=== PATIENT | male | born 1950 | race Caucasian/White ===

== ENCOUNTER 2018-05-10 16:21 | Emergency (ER) | payer OTHER ==
[2015-02-06 16:00] VITALS: Wt 72.6 kg
[~2018-05-10 16:21] MED LIST: ALBU8.5H IH; ASPI-715 PO; ASPI1TAB66 PO; ASPIRIN PO; BLOOD PRESSURE MED; DOC100 PO; HYDR-2966 PO; HYDR12.556 PO; LISI-374 PO; METXL50 PO; MULT-820 PO; OMEP-125 PO; PER PO; POTASSIUM GLUCONATE; PRED-1 PO; PRED20TA6 PO; SIMV-54 PO; TIOT4MIS5; WARF5TAB23 PO; [UNRECOGNIZED DRUG - OTHER]
--- NOTE | 2018-05-10 16:23 | ER Report ---
History and Physical Time Seen By MD: 16:23 HPI/ROS CHIEF COMPLAINT: htn HISTORY OF PRESENT ILLNESS: [facility] was seen [facility] and was found to have elevated blood pressure last week. Pt states that he used to be on lisinipril 40mg daily but they decided to change his medication due to it was not working. Pt is not sure what the new medication was since it has not come by mail as of yet. Pt takes his blood pressure once a day. Pt states his blood pressure has been getting more elevated. Yesterday bp was 160/70 today 183/90. Calm to ed for evaluation of blood pressure. Pt denies cp. no sob. Pt states he has been having muscle cramps in legs and arms. pt also has had and episode of blurred vision today after taking his blood pressure. No blurred vision since. REVIEW OF SYSTEMS: Constitutional: No fever, no chills. Eyes: No discharge, + blurred vision intermittent ENT: No sore throat. Cardiovascular: No chest pain, no palpitations. Respiratory: No cough, no shortness of breath. Gastrointestinal: No abdominal pain, no vomiting. Genitourinary: No hematuria. Musculoskeletal: No back pain, + leg cramps Skin: No rashes. Neurological: No headache. Allergies: Coded Allergies: No Known Drug Allergies (Verified , 05/10/18) Home Meds Active Scripts Albuterol Sulfate 90 Mcg/Act (PROAIR HFA 90 MCG/ACT) 8.5 Gm Hfa.aer.ad, 1-2 PUFF IH 3-4XD PRN for SHORTNESS OF BREATH, #1 INHALER Prov:ITZEL GONZALES MD 02/07/15 Reported Medications Budesonide/Formoterol Fumarate (SYMBICORT 80-4.5 MCG INHALER) 10.2 Gm Hfa.aer.ad, 10.2 GM IH 05/10/18 Atorvastatin Calcium (LIPITOR) 40 Mg Tablet, 2 TAB PO QDAY, TAB 05/10/18 Tiotropium [place] (Spiriva Respimat) 1.25 Mcg/Actuation Mist.inhal, 2.5 MCG 03/05/16 Hydrochlorothiazide (HYDROCHLOROTHIAZIDE) 25 Mg Tablet, 1 TAB PO QDAY, TAB 06/05/15 Lisinopril (LISINOPRIL) 40 Mg Tablet, 40 MG PO QDAY, TAB 06/05/15 Warfarin Sodium (WARFARIN SODIUM) 5 Mg Tablet, 5 MG PO QDAY, TAB 06/05/15 Aspirin (Aspirin) 81 Mg Tablet.dr, 81 MG PO DAILY, 0 Refills 04/01/10 Multivitamins (Multivitamin) 1 Tab Tablet, 1 TAB PO DAILY 04/01/10 Discontinued Reported Medications Simvastatin (SIMVASTATIN) 40 Mg Tablet, 40 MG PO HS, TAB 03/05/16 Past Medical/Surgical History PmhX: splenic rupture, htn, copd Pshx: arthorscopy of knee Reviewed Nurses Notes: Yes Old Medical Records Reviewed: Yes Hx Smoking: No (1 PPD X 30 YEARS) Smoking Status: Former Smoker Exposure to Second Hand Smoke?: Yes Hx Substance Use Disorder: No Hx Alcohol Use: Yes (QUIT 2006) Constitutional Vital Sign - Last 24 Hours 05/10/18 05/10/18 05/10/18 05/10/18 16:25 16:26 16:27 16:30 Temp 97.5 Pulse 112 Resp 24 B/P (MAP) 223/104 (143) 223/104 189/97 (127) Pulse Ox 95 O2 Delivery Nasal Cannula O2 Flow Rate 4.0 05/10/18 05/10/18 05/10/18 05/10/18 16:40 16:51 17:00 17:20 Pulse 75 Resp 7 B/P (MAP) 174/89 (117) 159/88 (111) 152/86 (108) Pulse Ox 96 05/10/18 05/10/18 05/10/18 05/10/18 17:21 17:40 17:45 18:00 Pulse 74 64 Resp 13 11 B/P (MAP) 156/84 (108) 150/79 (102) Pulse Ox 97 98 Intake and Output 05/10/18 05/10/18 05/11/18 15:00 23:00 07:00 Intake Total 1000 ml Balance 1000 ml Physical Exam General Appearance: The patient is alert, has no immediate need for airway protection and no signs of toxicity. Eyes: Pupils equal and round no pallor or injection, EOMI ENT: no pharyngeal erythema or exudates, Mucous membranes are moist, TM are nl b/l Respiratory: There are no retractions, lungs are clear to auscultation. Cardiovascular: Regular rate and rhythm. pulses are equal and symmetrical Gastrointestinal: Abdomen is soft and non tender, no masses, bowel sounds normal, no guarding, no rigidity or rebound Neurological: Cranial nerves II-XII grossly intact, no sensory or motor loss Skin: Warm and dry, no rashes. Musculoskeletal: Neck is supple non tender, no vertebral tenderness Extremities are non tender, nonswollen, no calf tendernes, and have full range of motion. DIFFERENTIAL DIAGNOSIS: After history and physical exam differential diagnosis was considered for electrolyte abnl, dehydration, essential htn, hypertension urgency Medical Decision Making Data Points Result Diagram: 05/10/188 05/10/188 Laboratory Hematology Test 05/10/18 16:58 Red Blood Count 4.10 M/uL (4.00-5.60) Mean Corpuscular Volume 88.7 fL (80.0-96.0) Mean Corpuscular Hemoglobin 29.6 pg (26.0-33.0) Mean Corpuscular Hemoglobin Concent 33.4 g/dL (32.0-36.0) Red Cell Distribution Width 15.0 % (11.5-14.5) Mean Platelet Volume 8.1 fL (7.2-11.1) Neutrophils (%) (Auto) 50.6 % (39.4-72.5) Lymphocytes (%) (Auto) 33.5 % (17.6-49.6) Monocytes (%) (Auto) 11.6 % (4.1-12.4) Eosinophils (%) (Auto) 3.9 % (0.4-6.7) Basophils (%) (Auto) 0.4 % (0.3-1.4) Nucleated RBC Relative Count (auto) 0.0 /100WBC Neutrophils # (Auto) 6.3 K/uL (2.0-7.4) Lymphocytes # (Auto) 4.2 K/uL (1.3-3.6) Monocytes # (Auto) 1.4 K/uL (0.3-1.0) Eosinophils # (Auto) 0.5 K/uL (0.0-0.5) Basophils # (Auto) 0.0 K/uL (0.0-0.1) Nucleated RBC Absolute Count (auto) 0.00 K/uL Prothrombin Time 23.6 seconds (12.0-14.4) Prothromb Time International Ratio 2.07 Sodium Level 138 mmol/L (137-145) Potassium Level 4.0 mmol/L (3.5-5.0) Chloride Level 102 mmol/L (98-107) Carbon Dioxide Level 28 mmol/L (22-30) Blood Urea Nitrogen 17 mg/dl (9-21) Creatinine 1.30 mg/dl (0.66-1.25) Glomerular Filtration Rate Calc 55.2 Random Glucose 93 mg/dl (75-110) Calcium Level 9.0 mg/dl (8.4-10.2) Magnesium Level 1.8 mg/dl (1.7-2.2) Total Bilirubin 0.5 mg/dl (0.2-1.3) Aspartate Amino Transf (AST/SGOT) 30 U/L (0-35) Alanine Aminotransferase (ALT/SGPT) 31 U/L (0-56) Alkaline Phosphatase 83 U/L (0-126) Total Protein 7.0 g/dl (6.3-8.2) Albumin 3.7 g/dl (3.5-5.0) Chemistry Test 05/10/18 16:58 White Blood Count 12.5 k/uL (4.5-11.0) Red Blood Count 4.10 M/uL (4.00-5.60) Hemoglobin 12.1 g/dL (14.0-18.0) Hematocrit 36.4 % (42.0-52.0) Mean Corpuscular Volume 88.7 fL (80.0-96.0) Mean Corpuscular Hemoglobin 29.6 pg (26.0-33.0) Mean Corpuscular Hemoglobin Concent 33.4 g/dL (32.0-36.0) Red Cell Distribution Width 15.0 % (11.5-14.5) Platelet Count 486 K/uL (150-450) Mean Platelet Volume 8.1 fL (7.2-11.1) Neutrophils (%) (Auto) 50.6 % (39.4-72.5) Lymphocytes (%) (Auto) 33.5 % (17.6-49.6) Monocytes (%) (Auto) 11.6 % (4.1-12.4) Eosinophils (%) (Auto) 3.9 % (0.4-6.7) Basophils (%) (Auto) 0.4 % (0.3-1.4) Nucleated RBC Relative Count (auto) 0.0 /100WBC Neutrophils # (Auto) 6.3 K/uL (2.0-7.4) Lymphocytes # (Auto) 4.2 K/uL (1.3-3.6) Monocytes # (Auto) 1.4 K/uL (0.3-1.0) Eosinophils # (Auto) 0.5 K/uL (0.0-0.5) Basophils # (Auto) 0.0 K/uL (0.0-0.1) Nucleated RBC Absolute Count (auto) 0.00 K/uL Prothrombin Time 23.6 seconds (12.0-14.4) Prothromb Time International Ratio 2.07 Glomerular Filtration Rate Calc 55.2 Calcium Level 9.0 mg/dl (8.4-10.2) Magnesium Level 1.8 mg/dl (1.7-2.2) Total Bilirubin 0.5 mg/dl (0.2-1.3) Aspartate Amino Transf (AST/SGOT) 30 U/L (0-35) Alanine Aminotransferase (ALT/SGPT) 31 U/L (0-56) Alkaline Phosphatase 83 U/L (0-126) Total Protein 7.0 g/dl (6.3-8.2) Albumin 3.7 g/dl (3.5-5.0) Coagulation Test 05/10/18 16:58 Prothrombin Time 23.6 seconds Prothromb Time International Ratio 2.07 EKG/Imaging EKG Interpretation NSr @ 70 wiht no acute changes noted. ED Course/Re-evaluation ED Course 05/10/2018 4:53:49 pm Called [facility] [id number] and was able to obtain the medica tion which they are changing him too. They are stopping the lisinipril and starting losartan 100mg daily. Pt is currently still on the lisinipril secondary to the losartan has not arrived. 05/10/2018 5:11:10 pm Pts blood pressure down to 159/88 prior to any medication being given. Was elevated on arrival into the room however that was taken immediately after walking into the room from the waiting room. 05/10/2018 5:27:06 pm Pts creatine is elevated from prior in computer. I do not have a recent creatine so unclear how much this is truly a change. My concern is that pt is on lisnipril and will be changing to losartan. will give pt fluids in case of dehydration as cause. Pt states he drinks3 bottles of water a day and about 2 cups of coffee. Recommend pt have repeat creatine at [facility] in next week or so. Pt is still taking his lisinipril since the Losartan has not arrive due to the goverment shutdown causing a delay. I offered to write a script for losartan which he can fill on his own or another bp medication until the losartan arrives however pt declined. Pt states he still has 2 weeks of lisinipril left and will use that until then. Decision to Disposition Date: May 10, 2018 Decision to Disposition Time: 17:29 Depart Departure Latest Vital Signs Vital Signs Date Time Temp Pulse Resp B/P (MAP) Pulse Ox O2 Delivery O2 Flow Rate FiO2 05/10/18 18:00 150/79 (102) 05/10/18 17:45 64 11 98 05/10/18 16:27 97.5 Nasal Cannula 05/10/18 16:26 4.0 Impression: Primary Impression: HTN (hypertension) Additional Impression: Acute renal insufficiency Condition: Improved Disposition: HOME OR SELF-CARE Departure Forms: ER Transition Record, Medications Reconciliation, Patient Portal Information Patient Instructions: Hypertension (ED), Impaired Kidney Function (ED) Additional Instructions: Your blood work today did show your creatine to be slightly elevated (1.3). This is a kidney function test. This can be due to dehydration or possibly your blood pressure medication [facility]inipril. [facility] which can also affect your kidneys. We gave you fluid in case of dehydration. [facility] with the [facility] to have your [facility] function rechecked in the next few week. Continue to take your blood pressure [facility] per the [facility]. Return to emergency room for any concerns that may develop prior to seeing the [facility]. Problem Qualifiers Primary Impression: HTN (hypertension) Hypertension type: essential hypertension Qualified Codes: I10 - Essential (primary) hypertension HOWIE ACOSTA DO May 10, 2018 16:23
[2018-05-10] MEDS ORDERED: ATOR40TA24 PO (16:31)
[2018-05-10] MEDS ORDERED: BUDE10.25 IH (16:31)
[2018-05-10] MEDS ORDERED: cloNIDine HCL 0.1 MG TAB PO ONE (16:55)
[2018-05-10 17:04] LABS: PLATELET COUNT, AUTOMATED 486 K/uL (150-450)
[2018-05-10 17:15] LABS: INR 2.07
[2018-05-10] MEDS ORDERED: NS(*) 0.9% 1000 ML BAG 1,000 ML IV ONE (17:20)
--- NOTE | 2018-05-10 17:57 | EKG ---
FACILITY: [facility] - [place] PATIENT NAME: VINEET CARDENAS : [id number] MR: [id number] V: [id number] EXAM DATE: ORDERING PHYSICIAN: HOWIE ACOSTA TECHNOLOGIST: Test Reason : HTN Blood Pressure : / mmHG Vent. Rate : 069 BPM Atrial Rate : 069 BPM P-R Int : 144 ms QRS Dur : 096 ms QT Int : 400 ms P-R-T Axes : 055 065 068 degrees QTc Int : 428 ms Sinus rhythm No acute appearing findings No previous ECGs available Confirmed by PATY GONZALES ([id number]) on 05/11/2018 3:18:47 AM Referred By: Confirmed By:PATY GONZALES
[2018-05-10 18:00] VITALS: BP 150/79
== END 2018-05-10 18:17 | disposition home or self-care (01) ==
LOC: ER 16:24
DX: I10 Essential (primary) hypertension (principal); N28.9 Disorder of kidney and ureter, unspecified
CPT/HCPCS: 83735; 85025; 85610; 93005; 96360; 99283; J7030; 82040; 82247; 82310; 82374; 82435; 82565; 82947; 84075; 84132; 84155; 84295; 84450; 84460; 84520

== ENCOUNTER 2018-05-24 14:13 | Emergency (ER) | payer OTHER ==
[2015-02-06 16:00] VITALS: Wt 70.3 kg
[~2018-05-24 14:13] MED LIST changes: +ATOR40TA24 PO; +BUDE10.25 IH
--- NOTE | 2018-05-24 14:17 | ER Report ---
History and Physical Time Seen By MD: 14:16 (ABHINAV PATRICIA MD) HPI/ROS CHIEF COMPLAINT: Elevated blood pressure; sent from [place] [facility]. HISTORY OF PRESENT ILLNESS: Patient is a 68-year-old male who presents to the emergency department for evaluation of elevated blood pressures report of 180/90 today. Patient has been seen previously in the emergency department for similar episode of high blood pressure. Patient at that time had been taking lisinopril but was supposed to being switched to losartan. She states that he was switched about 2 weeks ago and has been compliant with his medications. He was told to stop his hydrochlorothiazide which she has done. Patient has not followed up for repeat laboratory testing for his creatinine. He states that he's been having some episodic chest pain as well as a "mild headache over the last few days". He denies any nausea or shortness of breath. He does admit to some blurry vision. He denies any fevers or chills or other infectious type symptoms. The chest pain is described as a vague pressure behind the breast bone. There is no radiation of symptoms. He rates the discomfort at about a 2 out of 10 in intensity. REVIEW OF SYSTEMS: Constitutional: No fever, no chills. Eyes: No discharge. Condition ENT: No sore throat. Cardiovascular: Chest pain Respiratory: No cough, no shortness of breath. Gastrointestinal: No abdominal pain, no vomiting. Genitourinary: No hematuria. Musculoskeletal: No back pain. Skin: No rashes. Neurological: Headache (ABHINAV PATRICIA MD) Allergies: Coded Allergies: No Known Drug Allergies (Verified , 05/24/18) Home Meds Active Scripts Amlodipine Besylate (NORVASC) 5 Mg Tablet, 1 TAB PO QDAY, #30 TAB Prov:HOWIE ACOSTA DO 05/24/18 Albuterol Sulfate 90 Mcg/Act (PROAIR HFA 90 MCG/ACT) 8.5 Gm Hfa.aer.ad, 1-2 PUFF IH 3-4XD PRN for SHORTNESS OF BREATH, #1 INHALER Prov:ITZEL GONZALES MD 02/07/15 Reported Medications Losartan Potassium (LOSARTAN POTASSIUM) 100 Mg Tablet, 100 MG PO QDAY 05/24/18 Naproxen Sodium (ALEVE) 220 Mg Capsule, 440 MG PO DAILY PRN for pain, CAPSULE 05/24/18 Budesonide/Formoterol Fumarate (SYMBICORT 80-4.5 MCG INHALER) 10.2 Gm Hfa.aer.ad, 10.2 GM IH 05/10/18 Atorvastatin Calcium (LIPITOR) 40 Mg Tablet, 2 TAB PO QDAY, TAB 05/10/18 Tiotropium [place] (Spiriva Respimat) 1.25 Mcg/Actuation Mist.inhal, 2.5 MCG 03/05/16 Warfarin Sodium (WARFARIN SODIUM) 5 Mg Tablet, 5 MG PO QDAY, TAB 06/05/15 Aspirin (Aspirin) 81 Mg Tablet.dr, 81 MG PO DAILY, 0 Refills 04/01/10 Multivitamins (Multivitamin) 1 Tab Tablet, 1 TAB PO DAILY 04/01/10 Discontinued Reported Medications Hydrochlorothiazide (HYDROCHLOROTHIAZIDE) 25 Mg Tablet, 1 TAB PO QDAY, TAB 06/05/15 Lisinopril (LISINOPRIL) 40 Mg Tablet, 40 MG PO QDAY, TAB 06/05/15 Past Medical/Surgical History Past medical history for hypercoagulable disorder status post of acute pulmonary emboli as well as splenic rupture secondary to clot burden. Patient is currently anticoagulated on warfarin. History of hypertension, history of asthma, history of hypercholesterolemia. (ABHINAV PATRICIA MD) Hx Smoking: No (1 PPD X 30 YEARS) Smoking Status: Former Smoker Exposure to Second Hand Smoke?: Yes Hx Substance Use Disorder: No Hx Alcohol Use: Yes (QUIT 2006) (ABHINAV PATRICIA MD) Constitutional Vital Sign - Last 24 Hours 05/24/18 05/24/18 05/24/18 05/24/18 14:17 14:18 14:30 14:57 Temp 99.2 Pulse 111 Resp 20 B/P (MAP) 181/97 181/97 (125) 173/106 (128) 172/93 (119) Pulse Ox 94 96 O2 Delivery Nasal Cannula Nasal Cannula O2 Flow Rate 5 05/24/18 05/24/18 05/24/18 05/24/18 15:02 15:05 15:15 15:30 Pulse 83 Resp 16 B/P (MAP) 164/93 (116) 183/99 (127) Pulse Ox 96 O2 Flow Rate 5.0 05/24/18 05/24/18 05/24/18 05/24/18 15:32 15:45 16:00 16:02 Pulse 76 69 Resp 24 12 B/P (MAP) 170/152 (158) 172/103 (126) Pulse Ox 97 98 05/24/18 05/24/18 05/24/18 05/24/18 16:07 16:15 16:20 16:45 Pulse 72 73 Resp 14 12 B/P (MAP) 161/89 (113) 159/93 (115) Pulse Ox 98 99 05/24/18 05/24/18 05/24/18 05/24/18 16:50 17:00 17:15 17:20 Pulse 70 70 Resp 12 9 B/P (MAP) 160/85 (110) 140/83 (102) Pulse Ox 99 98 05/24/18 05/24/18 05/24/18 05/24/18 17:25 17:30 17:45 17:50 Pulse 75 69 Resp 17 15 B/P (MAP) 142/80 (100) 154/87 (109) Pulse Ox 98 98 05/24/18 05/24/18 05/24/18 05/24/18 18:00 18:05 18:15 18:20 Pulse 73 71 Resp 10 14 B/P (MAP) 161/93 (115) 162/101 (121) Pulse Ox 98 96 05/24/18 05/24/18 05/24/18 05/24/18 18:30 18:35 18:45 18:50 Pulse 67 69 Resp 13 18 B/P (MAP) 169/105 (126) 161/84 (109) Pulse Ox 99 98 05/24/18 05/24/18 19:00 19:05 Pulse 73 Resp 19 B/P (MAP) 165/101 (122) Pulse Ox 95 (LAURORA,HOWIE V DO) Physical Exam General/Constitutional: Patient is awake, alert, nontoxic and in no acute respiratory distress. Head: Normocephalic and atraumatic. Eyes: Conjunctival clear, Pupils are equal and reactive to light. Extraocular muscles are intact and symmetrical. Sclera are clear and anicteric. Ears:External canals are clear. Tympanic membranes are clear with normal landmarks and light reflex. Nares: No rhinorrhea or bleeding. Turbinates are pink and moist. Oropharyngeal: Mucous membranes are moist. Neck: Supple, no adenopathy. Cardiovascular: Heart is regular rate and rhythm without audible murmurs, rubs or gallops. Pulmonary: Lungs are clear to auscultation bilaterally. There are no wheezes, rales, or rhonchi. Chest rise is symmetrical Abdomen: Soft, nontender, no guarding or peritoneal signs. Extremities: No gross deformities, No peripheral cyanosis. Able to move all 4 extremities. Neuro: Alert and oriented X3, Skin: No rashes, skin is warm dry and well perfused. (ABHINAV PATRICIA MD) Medical Decision Making Data Points Result Diagram: 05/24/18 1430 05/24/18 1430 Laboratory Hematology Test 05/24/18 14:30 05/24/18 14:58 05/24/18 18:27 Red Blood Count 4.10 M/uL (4.00-5.60) Mean Corpuscular Volume 89.5 fL (80.0-96.0) Mean Corpuscular Hemoglobin 29.7 pg (26.0-33.0) Mean Corpuscular Hemoglobin Concent 33.2 g/dL (32.0-36.0) Red Cell Distribution Width 15.3 % (11.5-14.5) Mean Platelet Volume 8.7 fL (7.2-11.1) Neutrophils (%) (Auto) 58.7 % (39.4-72.5) Lymphocytes (%) (Auto) 27.2 % (17.6-49.6) Monocytes (%) (Auto) 11.0 % (4.1-12.4) Eosinophils (%) (Auto) 2.8 % (0.4-6.7) Basophils (%) (Auto) 0.3 % (0.3-1.4) Nucleated RBC Relative Count (auto) 0.1 /100WBC Neutrophils # (Auto) 7.0 K/uL (2.0-7.4) Lymphocytes # (Auto) 3.3 K/uL (1.3-3.6) Monocytes # (Auto) 1.3 K/uL (0.3-1.0) Eosinophils # (Auto) 0.3 K/uL (0.0-0.5) Basophils # (Auto) 0.0 K/uL (0.0-0.1) Nucleated RBC Absolute Count (auto) 0.01 K/uL Sodium Level 138 mmol/L (137-145) Potassium Level 4.0 mmol/L (3.5-5.0) Chloride Level 105 mmol/L (98-107) Carbon Dioxide Level 29 mmol/L (22-30) Blood Urea Nitrogen 13 mg/dl (9-21) Creatinine 1.10 mg/dl (0.66-1.25) Glomerular Filtration Rate Calc > 60.0 Random Glucose 100 mg/dl (75-110) Calcium Level 9.3 mg/dl (8.4-10.2) Total Bilirubin 0.6 mg/dl (0.2-1.3) Aspartate Amino Transf (AST/SGOT) 27 U/L (0-35) Alanine Aminotransferase (ALT/SGPT) 33 U/L (0-56) Alkaline Phosphatase 101 U/L (0-126) Total Protein 7.6 g/dl (6.3-8.2) Albumin 4.0 g/dl (3.5-5.0) Prothrombin Time 24.7 seconds (12.0-14.4) Prothromb Time International Ratio 2.19 Activated Partial Thromboplast Time 56 seconds (23-35) Troponin I < 0.012 ng/ml Chemistry Test 05/24/18 14:30 05/24/18 14:58 05/24/18 18:27 White Blood Count 12.0 k/uL (4.5-11.0) Red Blood Count 4.10 M/uL (4.00-5.60) Hemoglobin 12.2 g/dL (14.0-18.0) Hematocrit 36.7 % (42.0-52.0) Mean Corpuscular Volume 89.5 fL (80.0-96.0) Mean Corpuscular Hemoglobin 29.7 pg (26.0-33.0) Mean Corpuscular Hemoglobin Concent 33.2 g/dL (32.0-36.0) Red Cell Distribution Width 15.3 % (11.5-14.5) Platelet Count 486 K/uL (150-450) Mean Platelet Volume 8.7 fL (7.2-11.1) Neutrophils (%) (Auto) 58.7 % (39.4-72.5) Lymphocytes (%) (Auto) 27.2 % (17.6-49.6) Monocytes (%) (Auto) 11.0 % (4.1-12.4) Eosinophils (%) (Auto) 2.8 % (0.4-6.7) Basophils (%) (Auto) 0.3 % (0.3-1.4) Nucleated RBC Relative Count (auto) 0.1 /100WBC Neutrophils # (Auto) 7.0 K/uL (2.0-7.4) Lymphocytes # (Auto) 3.3 K/uL (1.3-3.6) Monocytes # (Auto) 1.3 K/uL (0.3-1.0) Eosinophils # (Auto) 0.3 K/uL (0.0-0.5) Basophils # (Auto) 0.0 K/uL (0.0-0.1) Nucleated RBC Absolute Count (auto) 0.01 K/uL Glomerular Filtration Rate Calc > 60.0 Calcium Level 9.3 mg/dl (8.4-10.2) Total Bilirubin 0.6 mg/dl (0.2-1.3) Aspartate Amino Transf (AST/SGOT) 27 U/L (0-35) Alanine Aminotransferase (ALT/SGPT) 33 U/L (0-56) Alkaline Phosphatase 101 U/L (0-126) Total Protein 7.6 g/dl (6.3-8.2) Albumin 4.0 g/dl (3.5-5.0) Prothrombin Time 24.7 seconds (12.0-14.4) Prothromb Time International Ratio 2.19 Activated Partial Thromboplast Time 56 seconds (23-35) Troponin I < 0.012 ng/ml Coagulation Test 05/24/18 14:58 Prothrombin Time 24.7 seconds Prothromb Time International Ratio 2.19 Activated Partial Thromboplast Time 56 seconds (HOWIE ACOSTA DO) EKG/Imaging EKG Interpretation EKG shows normal sinus rhythm with premature ventricular complexes. This was compared with EKG from May 10 no significant changes were noted. Monitor Interpretation: Normal Sinus Rhythm (ABHINAV PATRICIA MD) ED Course/Re-evaluation ED Course Current blood pressure is 173/106. This is without any treatment at this time. We will check cardiac workup including delta troponin at the 4 hour window. We'll also perform CT scan of the head and check coagulation panel and basic metabolic panel. Decision to Disposition Date: May 24, 2018 Decision to Disposition Time: 19:15 (ABHINAV PATRICIA MD) ED Course 05/24/2018 5:15:44 pm Pt signed out to me pending CT and labs. PTs Creatine has improved from prior visit. Pt blood pressure continued to be elevated. PT used to be on Lisinipril but was changed to Losartan 100mg daily. Pt has been using his losartan but has not had any improvment. [facility] jonah add norvasc and monitor in ED. pt is without cp since I have taken over, but will keep for second troponin. 05/24/2018 6:00:16 pm Signed out to dr. Malin pending second troponin Decision to Disposition Date: May 24, 2018 (HOWIE ACOSTA DO) Depart Departure Latest Vital Signs Vital Signs Date Time Temp Pulse Resp B/P (MAP) Pulse Ox O2 Delivery O2 Flow Rate FiO2 05/24/18 19:05 73 19 95 05/24/18 19:00 165/101 (122) 05/24/18 15:05 5.0 05/24/18 14:57 Nasal Cannula 05/24/18 14:17 99.2 (HOWIE ACOSTA DO) Impression: Primary Impression: Uncontrolled hypertension Condition: Improved Disposition: HOME OR SELF-CARE New Scripts Amlodipine Besylate (NORVASC) 5 Mg Tablet 1 TAB PO QDAY, #30 TAB Prov: HOWIE ACOSTA DO 05/24/18 Patient Instructions: Hypertension (ED) Additional Instructions: Continue to check your blood pressure. Continue your current medications. We are adding Norvasc once a day for blood pressure control. Make an appointment to be [facility] and to review your blood pressure medications. THey; may want to adjust or change your current medications. ABHINAV PATRICIA MD May 24, 2018 14:17 HOWIE ACOSTA DO May 24, 2018 17:18
[2018-05-24] MEDS ORDERED: NAPR220C12 PO (14:38)
[2018-05-24 14:52] LABS: PLATELET COUNT, AUTOMATED 486 K/uL (150-450)
--- NOTE | 2018-05-24 15:07 | RADIOLOGY IMAGING REPORT ---
FACILITY: [facility] - [place] PATIENT NAME: Grant Coley : 1950 MR: [id number] V: [id number] EXAM DATE: ORDERING PHYSICIAN: ABHINAV PATRICIA TECHNOLOGIST: Location: [facility] - [place] Patient: Grant Coley : 1950 Visit/Account:[id number] Date of Sevice: 05/24/2018 Exam type: CHEST SINGLE AP History: Chest Pain Comparison: February 05, 2015. Findings: There is hyperinflation throughout the lungs. No evidence of a pneumothorax or pneumomediastinum. T here is no evidence of focal infiltrates pleural effusions or pulmonary edema. The cardiac silhouett e is normal in size. IMPRESSION: 1. Hyperinflation throughout the lungs although no evidence of acute pulmonary consolidation Report Dictated By: Padmini Avilez MD at 05/24/2018 3:02 PM Report E-Signed By: Padmini Avilez MD at 05/24/2018 3:03 PM [id number]:[email or web address]
--- NOTE | 2018-05-24 15:07 | RADIOLOGY IMAGING REPORT ---
FACILITY: [facility] PATIENT NAME: Grant Coley : 1950 MR: [id number] V: [id number] EXAM DATE: ORDERING PHYSICIAN: ABHINAV PATRICIA TECHNOLOGIST: Location: [facility] - [place] Patient: Grant Coley : 1950 Visit/Account:[id number] Date of Sevice: 05/24/2018 CT Head without contrast Indication: Headache. Patient on Coumadin. Comparison: None available Technique: Axial CT images were obtained through the brain from the skull base to the vertex without administration of IV contrast. Reformatted coronal and sagittal images were also obtained. One of the following dose optimization techniques was utilized in the performance of this exam: autom ated exposure control; adjustment of the mA and/or kV according to the patient's size; or use of an i terative reconstruction technique. Specific details can be referenced in the facility's radiology CT exam operational policy. Findings: No evidence of mass, mass effect, or midline shift. No acute intracranial hemorrhage or acute territorial infarction. No extra-axial fluid collection or hydrocephalus. No abnormal density. Hood/white matter differentiat ion appears normal. Bony structures show no fractures or lesions. The visualized paranasal sinuses and mastoid air cells are clear. IMPRESSION: 1. No acute intracranial abnormality. Report Dictated By: Boyd Perdomo at 05/24/2018 2:58 PM Report E-Signed By: Boyd Perdomo at 05/24/2018 3:02 PM WSN:[email or web address]
[2018-05-24 15:18] LABS: INR 2.19
[2018-05-24] MEDS ORDERED: amLODIPine BESYL(*) 5 MG TAB PO ONE (15:20)
[2018-05-24] MEDS ORDERED: AMLO-101 PO (17:51)
[2018-05-24] MEDS ORDERED: LOSA100T75 PO (17:58)
[2018-05-24 19:00] VITALS: BP 165/101
--- NOTE | 2018-05-25 09:53 | EKG ---
FACILITY: [facility] PATIENT NAME: VINEET CARDENAS : [id number] MR: [id number]: [id number] EXAM DATE: ORDERING PHYSICIAN: ABHINAV PATRICIA TECHNOLOGIST: Test Reason : Blood Pressure : / mmHG Vent. Rate : 081 BPM Atrial Rate : 081 BPM P-R Int : 136 ms QRS Dur : 086 ms QT Int : 388 ms P-R-T Axes : 078 050 069 degrees QTc Int : 450 ms Sinus rhythm with premature supraventricular complexes Nonspecific ST abnormality Abnormal ECG When compared with ECG of 10-MAY-2018 17:06, No significant change was found Confirmed by Allen Stein [id number] on 05/25/2018 9:06:04 PM Referred By: Confirmed By:Allen Hinson
== END 2018-05-24 19:19 | disposition home or self-care (01) ==
LOC: ER 14:18
DX: I10 Essential (primary) hypertension (principal)
CPT/HCPCS: 36415; 70450; 71045; 82040; 82247; 82310; 82374; 82435; 82565; 82947; 84075; 84132; 84155; 84295; 84450; 84460; 84484; 84520; 85025; 85610; 85730; 86850; 86900; 86901; 99284